=== PATIENT | male | born 1940 ===

== ENCOUNTER 2016-10-01 11:20 | Inpatient (IN) | payer MEDICARE ==
[2016-10-01] MEDS ORDERED: diltiaZEM 100 mg Vial ( ADD-VANTAGE ) IV ONE (12:13)
[2016-10-01 12:15] LABS: VENOUS BLOOD GAS BASE EXCESS 0.8 mmol/L (0.0-2.0); VENOUS BLOOD GAS PCO2 39 mmHg (40-60); VENOUS BLOOD PH 7.42 (7.32-7.43)
[2016-10-01] MEDS ORDERED: Sodium Chloride 0.9% 1,000 ML IV STA (12:18)
[2016-10-01 12:21] LABS: BASO % 0.9 % (0.0-2.0); EOS # 0.2 K/uL (0.0-0.7); EOS % 3.9 % (0.0-4.0); HEMATOCRIT 47.7 % (35.0-51.0); LYMPH # 1.8 K/uL (1.0-4.3); LYMPH % 40.6 % (20.0-40.0); MEAN CELL VOLUME 86.6 fl (80.0-94.0); MEAN CORPUSCULAR HEMOGLOBIN 28.1 pg (27.0-31.0); MEAN CORPUSCULAR HGB CONC 32.4 g/dL (33.0-37.0); MEAN PLATELET VOLUME 9.3 fl (7.2-11.7); MONO # 0.3 K/uL (0.0-0.8); MONO % 7.7 % (0.0-10.0); NEUT # 2.1 K/uL (1.8-7.0); NEUT % 46.9 % (50.0-75.0); NRBC % 0.2 % (0.0-0.0); RED CELL DISTRIBUTION WIDTH 13.8 % (11.5-14.5); WHITE BLOOD COUNT 4.4 K/uL (4.8-10.8)
[2016-10-01 12:32] LABS: ALB/GLOB RATIO 1.1 (1.0-2.1); ALCOHOL SERUM < 10 mg/dl (0-10); ALKALINE PHOSPHATASE 61 U/L (38-126); ALT/SGPT 28 U/L (21-72); AST/SGOT 28 U/L (17-59); BILIRUBIN,TOTAL 0.6 mg/dl (0.2-1.3); BLOOD UREA NITROGEN 17 mg/dl (9-20); CALCIUM 9.4 mg/dL (8.4-10.2); CARBON DIOXIDE 25 mmol/L (22-30); CHLORIDE 103 mmol/L (98-107); GFR AFRICAN-AMERICAN > 60; GLUCOSE,RANDOM 196 mg/dL (75-110); POTASSIUM 3.6 MMOL/L (3.6-5.0); SODIUM 138 mmol/l (132-148); TOTAL PROTEIN 7.7 G/DL (6.3-8.2)
--- NOTE | 2016-10-01 12:56 | RAD ---
HISTORY: syncope cough COMPARISON: Chest x-ray performed 09/06/09 TECHNIQUE: Chest, one view. FINDINGS: Examination limited by habitus and hypoinflation. LUNGS: Bibasilar atelectasis. Please note that chest x-ray has limited sensitivity for the detection of pulmonary masses. PLEURA: No significant pleural effusion identified. No definite pneumothorax . CARDIOVASCULAR: Severe enlargement of the mediastinum similar prior study may be related to ectatic or tortuous aneurysmal aorta. Correlate clinically. Heart size appears top normal. OSSEOUS STRUCTURES: Degenerative changes of the spine and shoulders. VISUALIZED UPPER ABDOMEN: Unremarkable. OTHER FINDINGS: None. IMPRESSION: Severe enlargement of the mediastinum similar prior study performed 09/06/09, possibly related to ectatic or tortuous aneurysmal aorta. Correlate clinically. Bibasilar atelectasis.
[2016-10-01 13:13] LABS: RBC URINE 2 /hpf (0-3); URINE BILIRUBIN NEGATIVE (NEGATIVE); URINE BLOOD NEGATIVE (NEGATIVE); URINE COLOR YELLOW (YELLOW); URINE GLUCOSE (UA) NEG (Normal); URINE KETONE NEGATIVE (NEGATIVE); URINE LEUKOCYTE ESTERASE NEG Leu/uL (Negative); URINE PROTEIN 30 mg/dL (NEGATIVE); URINE UROBILINOGEN 0.2-1.0 mg/dL (0.2-1.0); WBC URINE < 1 /hpf (0-5)
[2016-10-01 13:22] LABS: PARTIAL THROMBOPLASTIN TIME 31.1 Seconds (25.6-37.1)
--- NOTE | 2016-10-01 13:33 | CP.PCM.HP ---
History of Present Illness - History of Present Illness History of Present Illness: 76 yo male with history of HTN and HLD brought in by daughter because of passing for several seconds at home. Patient recovered spontaneously and was noted to be diaphoretic complaining of some abdominal discomfort and palpitation. Daughter claimed he was alert and oriented. Denied chest pain but admitted mild SOB. Patient admitted passing out a month ago while in [facility] and having palpitation almost everyday. Saw a local physician there who did blood works but no EKG and said everything was fine. Patient just came back to [place] a week ago. Present on Admission - Present on Admission Any Indicators Present on Admission: No History of DVT/PE: No History of Uncontrolled Diabetes: No Urinary Catheter: No Decubitus Ulcer Present: No Review of Systems - Review of Systems All systems: reviewed and no additional remarkable complaints except (aside from those mentioned above, 12 point system review were negative by me) Past Patient History - Tetanus Immunizations Tetanus Immunization: Unknown - Past Medical History & Family History Past Family History: Reviewed and not pertinent - Past Social History Smoking Status: Never Smoked Alcohol: Occasional Drugs: Denies Home Situation {Lives}: With Family - CARDIAC Hx Hypercholesterolemia: Yes Hx Hypertension: Yes - PULMONARY Hx Respiratory Disorders: No - NEUROLOGICAL Hx Neurological Disorder: No - HEENT Hx HEENT Problems: No - RENAL Hx Chronic Kidney Disease: No - ENDOCRINE/METABOLIC Hx Endocrine Disorders: No - HEMATOLOGICAL/ONCOLOGICAL Hx Blood Disorders: No - INTEGUMENTARY Hx Dermatological Problems: No - MUSCULOSKELETAL/RHEUMATOLOGICAL Hx Degenerative Joint Disease: Yes (both knees) - GASTROINTESTINAL Hx Gastrointestinal Disorders: No - GENITOURINARY/GYNECOLOGICAL Hx Genitourinary Disorders: No - PSYCHIATRIC Hx Psychophysiologic Disorder: No Hx Substance Use: No - SURGICAL HISTORY Hx Surgeries: Yes Hx Orthopedic Surgery: Yes (right TKR, 12 yrs ago; left TKR, 7 yrs ago) - ANESTHESIA Hx Anesthesia: Yes Hx Anesthesia Reactions: No Meds Allergies/Adverse Reactions: Allergies Allergy/AdvReac Type Severity Reaction Status Date / Time No Known Allergies Allergy Verified 10/01/16 11:35 Physical Exam - Constitutional Appears: No Acute Distress - Head Exam Head Exam: ATRAUMATIC - Eye Exam Eye Exam: Normal appearance - ENT Exam ENT Exam: Mucous Membranes Moist - Neck Exam Neck exam: Negative for: Meningismus - Respiratory Exam Respiratory Exam: absent: Rhonchi, Wheezes, Respiratory Distress - Cardiovascular Exam Cardiovascular Exam: REGULAR RHYTHM, +S1, +S2 - GI/Abdominal Exam GI & Abdominal Exam: Soft. absent: Tenderness - Rectal Exam Rectal Exam: Deferred - Extremities Exam Extremities exam: Negative for: pedal edema - Back Exam Back exam: NORMAL INSPECTION - Neurological Exam Neurological exam: Alert, Oriented x3 - Psychiatric Exam Psychiatric exam: Normal Affect - Skin Skin Exam: Dry, Intact Results - Vital Signs Recent Vital Signs: Last Vital Signs Temp Pulse 86 10/01/16 12:37 Resp 20 10/01/16 12:37 BP 116/80 10/01/16 12:37 Pulse Ox 96 10/01/16 12:37 - Labs Result Diagrams: 10/01/16 12:00 10/01/16 12:00 Labs: Laboratory Results - last 24 hr 10/01/16 10/01/16 10/01/16 12:00 12:00 12:00 WBC 4.4 L RBC 5.50 Hgb 15.5 Hct 47.7 MCV 86.6 MCH 28.1 MCHC 32.4 L RDW 13.8 Plt Count 253 MPV 9.3 Neut % (Auto) 46.9 L Lymph % (Auto) 40.6 H [place] % (Auto) 7.7 Eos % (Auto) 3.9 Baso % (Auto) 0.9 Neut # 2.1 Lymph # 1.8 [place] # 0.3 Eos # 0.2 Baso # 0.0 PT 11.8 INR 1.0 APTT 31.1 pO2 VBG pH VBG pCO2 VBG HCO3 VBG Total CO2 VBG O2 Sat (Calc) VBG Base Excess VBG Potassium Glucose Lactate FiO2 Sodium 138 Potassium 3.6 Chloride 103 Carbon Dioxide 25 Anion Gap 15 BUN 17 Creatinine 1.0 Est GFR ( Amer) > 60 Est GFR (Non-Af Amer) > 60 Random Glucose 196 H Calcium 9.4 Total Bilirubin 0.6 AST 28 ALT 28 Alkaline Phosphatase 61 Total Creatine Kinase 77 NT-Pro-B Natriuret Pep 30.1 Total Protein 7.7 Albumin 4.1 Globulin 3.6 Albumin/Globulin Ratio 1.1 Venous Blood Potassium Urine Color Urine Clarity Urine pH Ur Specific [place] Urine Protein Urine Glucose (UA) Urine Ketones Urine Blood Urine Nitrate Urine Bilirubin Urine Urobilinogen Ur Leukocyte Esterase Urine RBC (Auto) Urine Microscopic WBC Ur Squamous Epith Cells Alcohol, Quantitative < 10 10/01/16 10/01/16 12:10 13:00 WBC RBC Hgb Hct MCV MCH MCHC RDW Plt Count MPV Neut % (Auto) Lymph % (Auto) [place] % (Auto) Eos % (Auto) Baso % (Auto) Neut # Lymph # [place] # Eos # Baso # PT INR APTT pO2 43 VBG pH 7.42 VBG pCO2 39 L VBG HCO3 25.1 VBG Total CO2 26.5 VBG O2 Sat (Calc) 90.4 H VBG Base Excess 0.8 VBG Potassium 3.7 Glucose 220 H Lactate 2.5 H FiO2 21.0 Sodium 136.0 Potassium Chloride 103.0 Carbon Dioxide Anion Gap BUN Creatinine Est GFR ( Amer) Est GFR (Non-Af Amer) Random Glucose Calcium Total Bilirubin AST ALT Alkaline Phosphatase Total Creatine Kinase NT-Pro-B Natriuret Pep Total Protein Albumin Globulin Albumin/Globulin Ratio Venous Blood Potassium 3.7 Urine Color Yellow Urine Clarity Clear Urine pH 7.0 Ur Specific [place] 1.011 Urine Protein 30 Urine Glucose (UA) Neg Urine Ketones Negative Urine Blood Negative Urine Nitrate Negative Urine Bilirubin Negative Urine Urobilinogen 0.2-1.0 Ur Leukocyte Esterase Neg Urine RBC (Auto) 2 Urine Microscopic WBC < 1 Ur Squamous Epith Cells < 1 Alcohol, Quantitative Assessment & Plan (1) Syncope Status: Acute Comment: admit to telemetry. serial Troponin and EKG. cardiology consult with Dr Hernandez (2) Atrial flutter with rapid ventricular response Status: Acute Comment: Metoprolol 25mg PO q 12hrs. Lovenox 90mg SC q 12hrs (3) HTN (hypertension) Status: Acute Comment: continue Metoprolol. hold Lisinopril and HCTZ. monitor BP (4) DVT prophylaxis Status: Acute Comment: on therapeutic Lovenox
[2016-10-01] MEDS ORDERED: Iodixanol 320 MG/ML 100 ML BOTTLE IV ONE (14:14)
[2016-10-01] MEDS ORDERED: Sodium Chloride 0.9% 50 ML IV ONE (14:15)
--- NOTE | 2016-10-01 14:48 | ED PDOC ---
Syncope/Near Syncope/Dizziness Time Seen by Provider: 10/01/16 11:39 Chief Complaint (Nursing): Dizziness/Lightheaded Chief Complaint (Provider): "he passed out" History Per: Patient, Family, Relief Captain (noemi SANCHES) Onset/Duration Of Symptoms: Sudden Onset Current Symptoms Are (Timing): Intermittent Episodes Activity At Onset Of Symptoms: Had Just Stood up Associated Symptoms Preceding Syncopal Episode: Lightheadedness Seizure Or Post-ictal Symptoms: None Fall Associated With With Symptoms: No Severity: Moderate Additional Complaint(s): 76yo male presents w daughter who states patient had sudden unexplained loss of consciousness just prior to arrival, was standing at the time, became dizzy, pale and passed out. No shaking motion or incontinence, rapid regain of consciousness but amnestic to events. Denies head trauma, headache or focal weakness. Past Medical History Reviewed: Historical Data, Nursing Documentation, Vital Signs Vital Signs: Last Vital Signs Temp Pulse 86 10/01/16 12:37 Resp 20 10/01/16 12:37 BP 116/80 10/01/16 12:37 Pulse Ox 96 10/01/16 12:37 - Medical History PMH: HTN, Hypercholesterolemia Denies: Chronic Kidney Disease - Surgical History Surgical History: No Surg Hx - Family History Family History: States: Unknown Family Hx - Living Arrangements Living Arrangements: With Family - Social History Current smoker - smoking cessation education provided: No Alcohol: Occasional Drugs: Denies - Home Medications Home Medications: Ambulatory Orders Medication Instructions Recorded Aspirin [Ecotrin] 81 mg PO DAILY 10/01/16 Lisinopril [Zestril] 40 mg PO DAILY 10/01/16 Pantoprazole Sodium [Protonix] 40 mg PO DAILY 10/01/16 hydroCHLOROthiazide [Hydrodiuril] 25 mg PO DAILY 10/01/16 - Allergies Allergies/Adverse Reactions: Allergies Allergy/AdvReac Type Severity Reaction Status Date / Time No Known Allergies Allergy Verified 10/01/16 11:35 Review of Systems Constitutional: Negative for: Fever, Chills Cardiovascular: Positive for: Light Headedness. Negative for: Chest Pain, Palpitations, Orthopnea Respiratory: Negative for: Cough, Shortness of Breath, Sputum Gastrointestinal: Negative for: Nausea, Vomiting, Abdominal Pain Genitourinary Male: Negative for: Dysuria, Frequency Musculoskeletal: Negative for: Neck Pain Skin: Negative for: Rash, Lesions Neurological: Positive for: Dizziness. Negative for: Weakness, Seizures, Headache Psych: Negative for: Anxiety, Depression Physical Exam - Reviewed Nursing Documentation Reviewed: Yes Vital Signs Reviewed: Yes - Physical Exam Appears: Positive for: Well, Non-toxic, No Acute Distress Head Exam: Positive for: ATRAUMATIC, NORMAL INSPECTION, NORMOCEPHALIC Skin: Positive for: Normal Color, Warm, DRY Eye Exam: Positive for: EOMI, Normal appearance, PERRL ENT: Positive for: Normal ENT Inspection Neck: Positive for: Normal, Painless ROM Cardiovascular/Chest: Positive for: Regular Rate, Rhythm Respiratory: Positive for: CNT, Normal Breath Sounds Pulses-Radial (L): 2+ Pulses-Radial (R): 2+ Gastrointestinal/Abdominal: Positive for: Bowel Sounds, Soft. Negative for: Tenderness, Distended, Guarding Back: Positive for: Normal Inspection Extremity: Positive for: Normal ROM Neurologic/Psych: Positive for: Alert, prefitter doors II-XII (intact]), Oriented. Negative for: Motor/Sensory Deficits, Aphasia - Laboratory Results Result Diagrams: 10/01/16 12:00 10/01/16 12:00 - ECG O2 Sat by Pulse Oximetry: 96 Medical Decision Making Medical Decision Making: workup initiated for syncope. While on cardiac technologist noticed sudden onset tachyarrythmia, 12L at time revealed possible Aflutter w 2:1 block. Cardizem 10mg ordered which slowed pt then returned to sinus rhythm, but had 2 further instances of tachyarrythmia captured while on monitor. BP low at the time but spontaneous conversion sinus rhythm in 80s, BP improved. Labs reviewed. Mild Elev lactate, trop neg. CXR abnormal mediastinum c/w prior CXR, CTA ordered r/o dissection (unlikely without Chest pain), aortic aneurysm. Admit Dr Damon covering Dr Dominguez PMD.
[2016-10-01] MEDS: Pantoprazole 40 mg EC Tab PO SCH (14:56)
--- NOTE | 2016-10-01 15:25 | CT ---
PROCEDURE: CT Chest with contrast (Pulmonary Angiogram) HISTORY: syncope, abnormal CXR COMPARISON: Comparison made with prior chest radiograph 10/01/2016 at 1331 hours. TECHNIQUE: Axial computed tomography images were obtained of the chest in the pulmonary arterial phase of enhancement. Coronal and sagittal reformatted images were created and reviewed. Intravenous contrast dose: Radiation dose: Total exam DLP = mGy-cm. This CT exam was performed using one or more of the following dose reduction techniques: Automated exposure control, adjustment of the mA and/or kV according to patient size, and/or use of iterative reconstruction technique. FINDINGS: PULMONARY ARTERIES: The visualized main trunk, right and left main, lobar, segmental and proximal subsegmental branches of the pulmonary arteries are well opacified with no filling defects seen to suggest acute pulmonary embolus. The pulmonary trunk is dilated measuring approximately 3.755 cm ; findings suggest underlying pulmonary arterial hypertension. . AORTA: There is mild fusiform aneurysmal dilatation of the ascending thoracic aorta measuring approximately 4 cm. Descending thoracic aorta measures approximately 2.9 cm. LUNGS: Vague ground-glass hazy opacities seen in the lower lobes and to a lesser degree upper lung daigle representing passive atelectasis however some residual air trapping or sequela of small airways disease not excluded. No focal consolidation or effusion. No evidence of pneumothorax. PLEURAL SPACES: No evidence of effusion or pneumothorax. HEART: Heart appears upper limits of normal/borderline enlarged. No significant pericardial effusion. Very minimal LVH. . LYMPH NODES: No significant mediastinal or hilar adenopathy. BONES, CHEST WALL: Unremarkable. No fracture or destructive lesion OTHER FINDINGS: There is a tiny hiatal hernia. Small exophytic cyst upper pole right kidney. IMPRESSION: No evidence of acute central pulmonary embolus. Dilated pulmonary trunk; findings suggest underlying pulmonary hypertension. Fusiform aneurysmal dilatation of the ascending thoracic aorta. The vague ground-glass hazy opacities seen throughout the lower and to a lesser degree upper lung zones likely representing atelectasis however sequela of air trapping and/or small airways disease to be considered. The small exophytic cyst upper pole right kidney.
--- NOTE | 2016-10-01 16:01 | RAD ---
HISTORY: syncope, abnormal portable CXR COMPARISON: Chest x-ray performed 10/01/16 1230 hours, CTA chest performed 10/01/16 TECHNIQUE: Chest PA and lateral FINDINGS: LUNGS: No focal consolidation. Please note that chest x-ray has limited sensitivity for the detection of pulmonary masses. PLEURA: No significant pleural effusion identified. No definite pneumothorax . CARDIOVASCULAR: Severe enlargement of the mediastinum similar consistent with a markedly ectatic aorta. Heart size appears top normal. OSSEOUS STRUCTURES: Degenerative changes of the spine. Degenerative changes of the shoulders. Acromioclavicular arthropathy. VISUALIZED UPPER ABDOMEN: Unremarkable. OTHER FINDINGS: None. IMPRESSION: No focal consolidation, significant pleural effusion, or definite pneumothorax identified.
[2016-10-01] MEDS: Enoxaparin 100 mg Syringe SC SCH (21:15)
[2016-10-01] MEDS: Potassium Chloride 20 mEq/15 ml LIQ UD PO SCH (22:30)
[2016-10-02] MEDS: Potassium Chloride 20 mEq/15 ml LIQ UD PO SCH (04:40)
[2016-10-02 06:39] LABS: BASO % 0.6 % (0.0-2.0); BLOOD UREA NITROGEN 18 mg/dl (9-20); CALCIUM 9.2 mg/dL (8.4-10.2); CARBON DIOXIDE 28 mmol/L (22-30); CHLORIDE 101 mmol/L (98-107); CHOLESTEROL 231 mg/dL (0-199); EOS # 0.3 K/uL (0.0-0.7); EOS % 5.2 % (0.0-4.0); GFR AFRICAN-AMERICAN > 60; GLUCOSE,RANDOM 98 mg/dL (75-110); HEMATOCRIT 44.7 % (35.0-51.0); LYMPH % 38.9 % (20.0-40.0); MAGNESIUM 1.7 MG/DL (1.6-2.3); MEAN CELL VOLUME 87.7 fl (80.0-94.0); MEAN CORPUSCULAR HEMOGLOBIN 28.2 pg (27.0-31.0); MEAN CORPUSCULAR HGB CONC 32.2 g/dL (33.0-37.0); MEAN PLATELET VOLUME 9.9 fl (7.2-11.7); MONO # 0.5 K/uL (0.0-0.8); MONO % 9.5 % (0.0-10.0); NEUT # 2.4 K/uL (1.8-7.0); NEUT % 45.8 % (50.0-75.0); NRBC % 0.2 % (0.0-0.0); POTASSIUM 4.5 MMOL/L (3.6-5.0); SODIUM 137 mmol/l (132-148); WHITE BLOOD COUNT 5.2 K/uL (4.8-10.8)
[2016-10-02 07:09] LABS: THYROID STIMULATING HORMONE 0.99 mIU/ML (0.46-4.68)
--- NOTE | 2016-10-02 10:32 | CT ---
PROCEDURE: CT HEAD WITHOUT CONTRAST. HISTORY: TIA? COMPARISON: None available. TECHNIQUE: Axial computed tomography images were obtained through the head/brain without intravenous contrast. Radiation dose: Total exam DLP = 945.14 mGy-cm. This CT exam was performed using one or more of the following dose reduction techniques: Automated exposure control, adjustment of the mA and/or kV according to patient size, and/or use of iterative reconstruction technique. FINDINGS: HEMORRHAGE: No intracranial hemorrhage. BRAIN: There is a focal low-attenuation area in the right subcortical frontal white matter (series 2, image 20). There is no mass, mass effect or abnormal extra-axial fluid collection. VENTRICLES: There is mild age-related global parenchymal volume loss and proportionate enlargement of the ventricles and cortical sulci. CALVARIUM: The skull base and calvarium are normal. PARANASAL SINUSES: Predominantly clear. MASTOID AIR CELLS: Predominantly clear. OTHER FINDINGS: None. IMPRESSION: Focal abnormal density in the right subcortical frontal white matter could represent subacute/chronic infarction or focal chronic microangiopathic changes. If clinically indicated, an MRI of the brain without intravenous contrast may be performed for further evaluation. Mild age-related global parenchymal volume loss.
[2016-10-02] MEDS: Enoxaparin 100 mg Syringe SC SCH (10:33)
[2016-10-02] MEDS: Pantoprazole 40 mg EC Tab PO SCH (10:34)
--- NOTE | 2016-10-02 10:39 | CP.PCM.CON ---
History of Present Illness - History of Present Illness History of Present Illness: SYNCOPAL EPISODE X 1 YESTERDAY. THIS IS THE 3RD EPISODE IN 6 YEARS. LAST ONE WAS A MONTH AGO. SYMPTOMS OF DIZZINESS AND LH FOR ABOUT 1 MIN PRIOR TO SYNCOPE. DENIES ETOH OR DRUG USE. HE DID HAVE PALP PRIOR, DENIES CP, SOB, N/V /D/C, PAIN, F/C. Pt denies thyroid disease or known hx of cad. he walks 2 miles daily w/o issue. Review of Systems - Review of Systems All systems: reviewed and no additional remarkable complaints except - Constitutional Constitutional: absent: As Per HPI, Anorexia, Chills, Daytime Sleepiness, Excessive Sweating, Fatigue, Fever, Frequent Falls, Headache, Increased Appetite , Lethargy, Malaise, Night Sweats, Snoring, Sleep Apnea, Weight Gain, Weight Loss, Weakness, Other - EENT Eyes: absent: As Per HPI, Blind Spots, Blurred Vision, Change in Vision, Decreased Night Vision, Diplopia, Discharge, Dry Eye, Exophthalmos, Floaters, Irritation, Itchy Eyes, Loss of Peripheral Vision, Pain, Photophobia, Requires Corrective Lenses, Sees Flashes, Spots in Vision, Tunnel Vision, Other Visual Disturbances, Loss of Vision, Other Ears: absent: As Per HPI, Decreased Hearing, Ear Discharge, Ear Pain, Tinnitus, Abnormal Hearing, Disequilibrium, Dizziness, Other Nose/Mouth/Throat: absent: As Per HPI, Epistaxis, Nasal Congestion, Nasal Discharge, Nasal Obstruction, Nasal Trauma, Nose Pain, Post Nasal Drip, Sinus Pain, Sinus Pressure, Bleeding Gums, Change in Voice, Dental Pain, Dry Mouth, Dysphagia, Halitosis, Hoarsness, Lip Swelling, Mouth Lesions, Mouth Pain, Odynophagia, Sore Throat, Throat Swelling, Tongue Swelling, Facial Pain, Neck Pain, Neck Mass, Other - Cardiovascular Cardiovascular: As Per HPI, Lightheadedness, Palpitations, Rapid Heart Rate, Syncope. absent: Acrocyanosis, Chest Pain, Chest Pain at Rest, Chest Pain with Activity, Claudication, Diaphoresis, Dyspnea, Dyspnea on Exertion, Edema, Irregular Heart Rhythm, Pain Radiating to Arm/Neck/Jaw, Leg Edema, Leg Ulcers, Orthopnea, Paroxysmal Nocturnal Dyspnea, Pedal Edema, Radiating Pain, Slow Heart Rate, Other - Respiratory Respiratory: absent: As Per HPI, Cough, Dyspnea, Hemoptysis, Dyspnea on Exertion , Wheezing, Snoring, Stridor, Pain on Inspiration, Chest Congestion, Excessive Mucous Production, Change in Mucous Color, Pain with Coughing, Other - Gastrointestinal Gastrointestinal: absent: As Per HPI, Abdominal Pain, Belching, Bloating, Change in Bowel Habits, Change in Stool Character, Coffee Ground Emesis, Constipation, Cramping, Diarrhea, Dyspepsia, Dysphagia, Early Satiety, Excessive Flatus, Fecal Incontinence, Heartburn, Hematemesis, Hematochezia, Loose Stools, Melena, Nausea, Odynophagia, Temesmus, Vomiting, Other - Genitourinary Genitourinary: absent: As Per HPI, Change in Urinary Stream, Difficulty Urinating, Dysuria, Flank Pain, Hematuria, Pyuria, Nocturia, Urinary Incontinence, Urinary Frequency, Urinary Hesitance, Urinary Urgency, Voiding Freq/Small Amts, Freq UTI, Hx Renal/Bladder Calculi, Hx /Renal Surgery, Bladder Distension, Other - Musculoskeletal Musculoskeletal: absent: As Per HPI, Abnormal Gait, Arthralgias, Atrophy, Back Pain, Deformity, Joint Swelling, Limited Range of Motion, Loss of Height, Muscle Cramps, Muscle Weakness, Myalgias, Neck Pain, Numbness, Radiating Pain into Limb, Stiffness, Tingling, Other - Integumentary Integumentary: absent: As Per HPI, Acne, Alopecia, Bleeding Lesions, Change in Hair, Change in Nails, Change in Pigmentation, Changing Lesions, Dry Skin, Erythema, Furuncle, Hirsutism, Lesions, New Lesions, Non-Healing Lesions, Photosensitivity, Pruritus, Rash, Skin Pain, Skin Ulcer, Sores, Striae, Swelling , Unusual Bruising, Wounds, Jaundice, Other - Neurological Neurological: absent: As Per HPI, Abnormal Gait, Abnormal Hearing, Abnormal Movements, Abnormal Speech, Behavioral Changes, Burning Sensations, Confusion, Convulsions, Disequilibrium, Dizziness, Numbness, Focal Weakness, Frequent Falls , Headaches, Lack of Coordination, Loss of Vision, Memory Loss, Paresthesias, Radicular Pain, Restless Legs, Sensory Deficit, Syncope, Tingling, Tremor, Vertigo, Weakness, Other Visual Disturbances, Other - Psychiatric Psychiatric: absent: As Per HPI, Abnormal Sleep Pattern, Anhedonia, Anxiety, Auditory Hallucinations, Behavioral Changes, Change in Appetite, Change in Libido, Confusion, Depression, Difficulty Concentrating, Hallucinations, Homicidal Ideation, Hopelessness, Irritability, Memory Loss, Mood Swings, Panic Attacks, Paranoia, Suicidal Ideation, Visual Hallucinations, Tactile Hallucinations, Other - Endocrine Endocrine: absent: As Per HPI, Change in Body Appearance, Change in Libido, Cold Intolorance, Deepening of Voice, Excessive Sweating, Fatigue, Flushing, Heat Intolorance, Increase in Ring/Shoe/Hat Size, Palpitations, Polydipsia, Polyphagia, Polyuria, Other - Hematologic/Lymphatic Hematologic: absent: As Per HPI, Easy Bleeding, Easy Bruising, Lymphadenopathy, Other Past Patient History - Infectious Disease Hx of Infectious Diseases: None - Tetanus Immunizations Tetanus Immunization: Unknown - Past Medical History & Family History Past Family History: Reviewed and not pertinent - Past Social History Smoking Status: Former Smoker Alcohol: None Drugs: Denies Home Situation {Lives}: With Family Domestic Violence: Negative - CARDIAC Hx Cardiac Disorders: Yes Hx Hypercholesterolemia: Yes Hx Hypertension: Yes - PULMONARY Hx Respiratory Disorders: No - NEUROLOGICAL Hx Neurological Disorder: No Hx Syncope: Yes - HEENT Hx HEENT Problems: No - RENAL Hx Chronic Kidney Disease: No - ENDOCRINE/METABOLIC Hx Endocrine Disorders: No - HEMATOLOGICAL/ONCOLOGICAL Hx Blood Disorders: No - INTEGUMENTARY Hx Dermatological Problems: No - MUSCULOSKELETAL/RHEUMATOLOGICAL Hx Musculoskeletal Disorders: Yes Hx Degenerative Joint Disease: Yes (b/l knee surgery) Hx Falls: Yes - GASTROINTESTINAL Hx Gastrointestinal Disorders: No - GENITOURINARY/GYNECOLOGICAL Hx Genitourinary Disorders: No - PSYCHIATRIC Hx Psychophysiologic Disorder: No Hx Substance Use: No - SURGICAL HISTORY Hx Surgeries: Yes Hx Orthopedic Surgery: Yes (right TKR, 12 yrs ago; left TKR, 7 yrs ago) - ANESTHESIA Hx Anesthesia: Yes Hx Anesthesia Reactions: No Hx Malignant Hyperthermia: No Has any member of the family had a problem w/ anesthesia?: No Meds Home Medications: Home Medication List Medication Instructions Recorded Confirmed Type Aspirin [Ecotrin] 81 mg PO DAILY #30 10/02/16 Rx Atorvastatin [Lipitor] 20 mg PO HS #30 tab 10/02/16 Rx Metoprolol Tartrate [Lopressor] 25 mg PO Q12 #60 tab 10/02/16 Rx Pantoprazole [Protonix EC Tab] 40 mg PO DAILY #30 ect 10/02/16 Rx hydroCHLOROthiazide [Hydrodiuril] 25 mg PO DAILY #30 10/02/16 Rx Allergies/Adverse Reactions: Allergies Allergy/AdvReac Type Severity Reaction Status Date / Time No Known Allergies Allergy Verified 10/01/16 11:35 - Medications Medications: Current Medications Aspirin (Ecotrin) 81 mg PO DAILY [facility] Last Admin: 10/02/16 10:32 Dose: 81 mg Atorvastatin Calcium (Lipitor) 10 mg PO HS [facility] Last Admin: 10/01/16 22:37 Dose: 10 mg Docusate Sodium (Colace) 100 mg PO BID PRN PRN Reason: Constipation Enoxaparin Sodium (Lovenox) 100 mg SC Q12 [facility] PRN Reason: Protocol Last Admin: 10/02/16 10:33 Dose: 100 mg Metoprolol Tartrate (Lopressor) 25 mg PO Q12 [facility] Last Admin: 10/02/16 10:32 Dose: Not Given Pantoprazole Sodium (Protonix Ec Tab) 40 mg PO DAILY [facility] Last Admin: 10/02/16 10:34 Dose: 40 mg Physical Exam - Constitutional Appears: Well - Head Exam Head Exam: ATRAUMATIC - Eye Exam Eye Exam: EOMI, Normal appearance, PERRL Pupil Exam: NORMAL ACCOMODATION, PERRL - ENT Exam ENT Exam: Mucous Membranes Moist, Normal Exam - Neck Exam Neck exam: Positive for: Normal Inspection - Respiratory Exam Respiratory Exam: Clear to Auscultation Bilateral, NORMAL BREATHING PATTERN - Cardiovascular Exam Cardiovascular Exam: REGULAR RHYTHM, +S1, +S2, Systolic Murmur Additional comments: LLSB, non radiating. - GI/Abdominal Exam GI & Abdominal Exam: Normal Bowel Sounds, Soft. absent: Tenderness - Rectal Exam Rectal Exam: Deferred - Extremities Exam Extremities exam: Positive for: normal inspection - Back Exam Back exam: NORMAL INSPECTION - Neurological Exam Neurological exam: Alert, CN II-XII Intact, Normal Gait, Oriented x3, Reflexes Normal - Psychiatric Exam Psychiatric exam: Normal Affect, Normal Mood - Skin Skin Exam: Dry, Intact, Normal Color, Warm Results - Vital Signs Recent Vital Signs: Last Vital Signs Temp 98.4 F 10/02/16 08:00 Pulse 54 L 10/02/16 10:32 Resp 20 10/02/16 08:00 BP 101/62 10/02/16 10:32 Pulse Ox 100 10/02/16 08:00 - Labs Result Diagrams: 10/02/16 05:00 10/02/16 05:00 Labs: Laboratory Results - last 24 hr 10/01/16 10/02/16 10/02/16 21:08 05:00 05:00 WBC 5.2 RBC 5.10 Hgb 14.4 Hct 44.7 MCV 87.7 MCH 28.2 MCHC 32.2 L RDW 14.0 Plt Count 223 MPV 9.9 Neut % (Auto) 45.8 L Lymph % (Auto) 38.9 [place] % (Auto) 9.5 Eos % (Auto) 5.2 H Baso % (Auto) 0.6 Neut # 2.4 Lymph # 2.0 [place] # 0.5 Eos # 0.3 Baso # 0.0 Sodium 137 Potassium 4.5 Chloride 101 Carbon Dioxide 28 Anion Gap 13 BUN 18 Creatinine 1.1 Est GFR ( Amer) > 60 Est GFR (Non-Af Amer) > 60 Random Glucose 98 Calcium 9.2 Magnesium 1.7 Troponin I 0.0130 < 0.0120 Triglycerides 168 H Cholesterol 231 H LDL Cholesterol Direct 157 H HDL Cholesterol 42 TSH 3rd Generation 0.99 - EKG Data EKG Interpreted by: Myself EKG shows normal: Sinus rhythm Rate: Normal Assessment & Plan (1) Atrial flutter with rapid ventricular response Status: Acute (2) HTN (hypertension) Status: Acute (3) Syncope Status: Acute (4) Leg pain, left Status: Acute (5) Dyslipidemia Status: Acute - Assessment and Plan (Free Text) Plan: 1) ECHO TODAY TO EVAL LAE 2) TELE SHOWS NO FURTHER ARRYTHMIAS ON MEDS 3) LE DOPPLERS GIVEN RECENT TRIP AND LLE PAIN. CTA WAS NEGATIVE BUT WE NEED TO R/O DVT. 4) CONTINUE TELE. 5) PT WILL NOT NEED ANTICOAGULATION ON D/C HE HAS NOT HAD ANY LONG SUSTAINED RUNS AND NO EVIDENCE OF AFIB. PT IS SYMPTOMATIC WITH THE ARRYTHMIA. 6) WOULD CONTINUE ASA ON D/C AND BB'S 7) REPLEAT LYTES - MAG GIVEN TODAY, KCL YESTERDAY 8) INCREASED STATIN GIVEN LIPIDS. 10) 45 MIN TOTAL CARE TIME.
[2016-10-02] MEDS ORDERED: Magnesium Sulfate 2 gm/50 ml 2 GM/50 ML BAG IVPB ONE (10:41)
--- NOTE | 2016-10-02 11:01 | US ---
PROCEDURE: Duplex ultrasound of the carotid and vertebral arteries. HISTORY: TIA COMPARISON: None available. TECHNIQUE: Grayscale and duplex Doppler evaluation of the cervical carotid and vertebral arteries were performed. The common carotid, carotid bifurcations and cervical ICA and proximal ECA were evaluated. The vertebral arteries were evaluated for gross patency and direction. FINDINGS: RIGHT CAROTID ARTERIES: Common Carotid Artery: Normal. Maximal flow velocity of 75.7 cm/s. Carotid Bifurcation: Normal. Internal Carotid Artery:There are mild calcified atherosclerotic plaques in the proximal ICA. Maximal flow velocity of 46.0 cm/s. External Carotid Artery (proximal branches): Normal. Maximal flow velocity of 55.9 cm/s. ICA/CCA Ratio: 0.6 LEFT CAROTID ARTERIES: Common Carotid Artery: Normal. Maximal flow velocity of 179.8 cm/s. Carotid Bifurcation: Normal. Internal Carotid Artery:Normal. Maximal flow velocity of 61.4 cm/s. External Carotid Artery (proximal branches): Normal. Maximal flow velocity of 61.4 cm/s. ICA/CCA Ratio: 0.8 VERTEBRAL ARTERIES: Right Vertebral Artery: Patent. Antegrade flow. Left Vertebral Artery: Patent. Antegrade flow. OTHER FINDINGS: None. IMPRESSION: Mild calcified atherosclerotic plaques in the proximal right internal carotid artery. No evidence of hemodynamically significant stenosis.
--- NOTE | 2016-10-02 12:48 | US ---
PROCEDURE: Bilateral lower extremity venous duplex Doppler. HISTORY: DVT COMPARISON: None available. TECHNIQUE: Bilateral common femoral, superficial femoral, popliteal and posterior tibial veins were evaluated. Flow was assessed with color Doppler, compressibility, assessment of phasic flow and augmentation response. FINDINGS: COMMON FEMORAL VEIN: Right CFV: Unremarkable. Left CFV: Unremarkable. SUPERFICIAL FEMORAL VEIN: Right SFV: Unremarkable. Left SFV: Unremarkable. POPLITEAL VEIN: Right Popliteal: Unremarkable. Left Popliteal: Unremarkable. POSTERIOR TIBIAL VEIN: Right PTV: Unremarkable. Left PTV: Unremarkable. OTHER FINDINGS: None. IMPRESSION: No evidence of deep venous thrombosis.
--- NOTE | 2016-10-02 13:05 | CP.PCM.DIS ---
Provider - Provider Date of Admission: 10/01/16 13:30 Attending physician: Prince Damon MD Time Spent in preparation of Discharge (in minutes): 20 Diagnosis - Discharge Diagnosis (1) Atrial flutter with rapid ventricular response Status: Acute (2) Dyslipidemia Status: Acute (3) HTN (hypertension) Status: Acute (4) Leg pain, left Status: Acute (5) Syncope Status: Acute Hospital Course - Lab Results Lab Results: Most Recent Lab Values WBC 5.2 K/uL (4.8-10.8) 10/02/16 05:00 RBC 5.10 Mil/uL (4.40-5.90) 10/02/16 05:00 Hgb 14.4 g/dL (12.0-18.0) 10/02/16 05:00 Hct 44.7 % (35.0-51.0) 10/02/16 05:00 MCV 87.7 fl (80.0-94.0) 10/02/16 05:00 MCH 28.2 pg (27.0-31.0) 10/02/16 05:00 MCHC 32.2 g/dL (33.0-37.0) L 10/02/16 05:00 RDW 14.0 % (11.5-14.5) 10/02/16 05:00 Plt Count 223 K/uL (130-400) 10/02/16 05:00 MPV 9.9 fl (7.2-11.7) 10/02/16 05:00 Neut % (Auto) 45.8 % (50.0-75.0) L 10/02/16 05:00 Lymph % (Auto) 38.9 % (20.0-40.0) 10/02/16 05:00 [place] % (Auto) 9.5 % (0.0-10.0) 10/02/16 05:00 Eos % (Auto) 5.2 % (0.0-4.0) H 10/02/16 05:00 Baso % (Auto) 0.6 % (0.0-2.0) 10/02/16 05:00 Neut # 2.4 K/uL (1.8-7.0) 10/02/16 05:00 Lymph # 2.0 K/uL (1.0-4.3) 10/02/16 05:00 [place] # 0.5 K/uL (0.0-0.8) 10/02/16 05:00 Eos # 0.3 K/uL (0.0-0.7) 10/02/16 05:00 Baso # 0.0 K/uL (0.0-0.2) 10/02/16 05:00 PT 11.8 Seconds (9.8-13.1) 10/01/16 12:00 INR 1.0 (0.9-1.2) 10/01/16 12:00 APTT 31.1 Seconds (25.6-37.1) 10/01/16 12:00 D-Dimer, Quantitative 190 ng/mlDDU (0-230) 10/01/16 12:00 pO2 43 mm/Hg (30-55) 10/01/16 12:10 VBG pH 7.42 (7.32-7.43) 10/01/16 12:10 VBG pCO2 39 mmHg (40-60) L 10/01/16 12:10 VBG HCO3 25.1 mmol/L 10/01/16 12:10 VBG Total CO2 26.5 mmol/L (22-28) 10/01/16 12:10 VBG O2 Sat (Calc) 90.4 % (40-65) H 10/01/16 12:10 VBG Base Excess 0.8 mmol/L (0.0-2.0) 10/01/16 12:10 VBG Potassium 3.7 mmol/L (3.6-5.2) 10/01/16 12:10 Sodium 136.0 mmol/L (132-148) 10/01/16 12:10 Chloride 103.0 mmol/L (98-107) 10/01/16 12:10 Glucose 220 mg/dL (75-110) H 10/01/16 12:10 Lactate 2.5 mmol/L (0.7-2.1) H 10/01/16 12:10 FiO2 21.0 % 10/01/16 12:10 Sodium 137 mmol/l (132-148) 10/02/16 05:00 Potassium 4.5 MMOL/L (3.6-5.0) 10/02/16 05:00 Chloride 101 mmol/L (98-107) 10/02/16 05:00 Carbon Dioxide 28 mmol/L (22-30) 10/02/16 05:00 Anion Gap 13 (10-20) 10/02/16 05:00 BUN 18 mg/dl (9-20) 10/02/16 05:00 Creatinine 1.1 mg/dL (0.8-1.5) 10/02/16 05:00 Est GFR ( Amer) > 60 10/02/16 05:00 Est GFR (Non-Af Amer) > 60 10/02/16 05:00 Random Glucose 98 mg/dL (75-110) 10/02/16 05:00 Calcium 9.2 mg/dL (8.4-10.2) 10/02/16 05:00 Magnesium 1.7 MG/DL (1.6-2.3) 10/02/16 05:00 Total Bilirubin 0.6 mg/dl (0.2-1.3) 10/01/16 12:00 AST 28 U/L (17-59) 10/01/16 12:00 ALT 28 U/L (21-72) 10/01/16 12:00 Alkaline Phosphatase 61 U/L (38-126) 10/01/16 12:00 Total Creatine Kinase 77 U/L (55-170) 10/01/16 12:00 Troponin I < 0.0120 ng/mL (0.00-0.120) 10/02/16 05:00 NT-Pro-B Natriuret Pep 30.1 pg/ml (0-900) 10/01/16 12:00 Total Protein 7.7 G/DL (6.3-8.2) 10/01/16 12:00 Albumin 4.1 g/dL (3.5-5.0) 10/01/16 12:00 Globulin 3.6 gm/dL (2.2-3.9) 10/01/16 12:00 Albumin/Globulin Ratio 1.1 (1.0-2.1) 10/01/16 12:00 Triglycerides 168 mg/DL (0-149) H 10/02/16 05:00 Cholesterol 231 mg/dL (0-199) H 10/02/16 05:00 LDL Cholesterol Direct 157 mg/dL (0-129) H 10/02/16 05:00 HDL Cholesterol 42 MG/DL (30-70) 10/02/16 05:00 TSH 3rd Generation 0.99 mIU/ML (0.46-4.68) 10/02/16 05:00 Venous Blood Potassium 3.7 mmol/L (3.6-5.2) 10/01/16 12:10 Urine Color Yellow (YELLOW) 10/01/16 13:00 Urine Clarity Clear (Clear) 10/01/16 13:00 Urine pH 7.0 (5.0-8.0) 10/01/16 13:00 Ur Specific Oxly 1.011 (1.003-1.030) 10/01/16 13:00 Urine Protein 30 mg/dL (NEGATIVE) 10/01/16 13:00 Urine Glucose (UA) Neg mg/dL (Normal) 10/01/16 13:00 Urine Ketones Negative mg/dL (NEGATIVE) 10/01/16 13:00 Urine Blood Negative (NEGATIVE) 10/01/16 13:00 Urine Nitrate Negative (NEGATIVE) 10/01/16 13:00 Urine Bilirubin Negative (NEGATIVE) 10/01/16 13:00 Urine Urobilinogen 0.2-1.0 mg/dL (0.2-1.0) 10/01/16 13:00 Ur Leukocyte Esterase Neg [place]/uL (Negative) 10/01/16 13:00 Urine RBC (Auto) 2 /hpf (0-3) 10/01/16 13:00 Urine Microscopic WBC < 1 /hpf (0-5) 10/01/16 13:00 Ur Squamous Epith Cells < 1 /hpf (0-5) 10/01/16 13:00 Alcohol, Quantitative < 10 mg/dl (0-10) 10/01/16 12:00 - Hospital Course Hospital Course: 76 yo male with history of HTN and HLD brought in by daughter because of passing out for several seconds at home. Patient recovered spontaneously and was noted to be diaphoretic complaining of some abdominal discomfort and palpitation. Patient was found to have aflutter with RVR. Patient was placed on beta blockade. Patient was also evaluated for PE, CTA neg. CT head neg for bleed. Carotid vertebral duplex were negative. ECHO read can be followed up as an outpatient. Lower extremity Duplex also neg for DVT. Discussed with Cardiology, no AC as outpatient for aflutter. Cont BB. Stable for discharge home. Discharge Exam - Head Exam Head Exam: ATRAUMATIC, NORMAL INSPECTION, NORMOCEPHALIC - Eye Exam Eye Exam: EOMI, Normal appearance, PERRL Pupil Exam: NORMAL ACCOMODATION - ENT Exam ENT Exam: Mucous Membranes Moist, Normal Oropharynx - Neck Exam Neck exam: Full Rom, Normal Inspection - Respiratory Exam Respiratory Exam: Clear to PA & Lateral, NORMAL BREATHING PATTERN - Cardiovascular Exam Cardiovascular Exam: RRR, +S1, +S2 - GI/Abdominal Exam GI & Abdominal Exam: Normal Bowel Sounds, Soft. absent: Mass, Organomegaly, Tenderness - Extremities Exam Extremities exam: normal capillary refill, pedal pulses present - Back Exam Back exam: absent: CVA tenderness (L), CVA tenderness (R) - Neurological Exam Neurological exam: Alert, Oriented x3 - Psychiatric Exam Psychiatric exam: Normal Affect, Normal Mood - Skin Skin Exam: Dry, Warm Discharge Plan - Discharge Medications Prescriptions: Aspirin [Ecotrin] 81 mg PO DAILY #30 Atorvastatin [Lipitor] 20 mg PO HS #30 tab hydroCHLOROthiazide [Hydrodiuril] 25 mg PO DAILY #30 Metoprolol Tartrate [Lopressor] 25 mg PO Q12 #60 tab Pantoprazole [Protonix EC Tab] 40 mg PO DAILY #30 ect - Follow Up Plan Condition: FAIR Disposition: HOME/ ROUTINE Additional Instructions: stable for discharge home follow up with PCP AND Cardiology in one week resume heart healthy diet resume activity as tolerated return to ER if condition worsens
[2016-10-02 14:00] VITALS: BP 105/62; PULSE 62; RESP 18; TEMP 98.6; O2SAT 99
--- NOTE | 2016-10-02 16:11 | CARD ---
APPROVED REPORT EXAM: Two-dimensional and M-mode echocardiogram with Doppler and color Doppler. Other Information Quality : AverageRhythm : NSR INDICATION Syncope 2D DIMENSIONS IVSd1.34 (0.7-1.1cm)LVDd3.95 (3.9-5.9cm) LVOT Diameter3.43 (1.8-2.4cm)PWd0.72 (0.7-1.1cm) IVSs2.19 (0.8-1.2cm)LVDs2.91 (2.5-4.0cm) FS (%) 26.3 %PWs1.35 (0.8-1.2cm) LVEF (%)55.0 (>50%) M-Mode DIMENSIONS Left Atrium (MM)4.97 (2.5-4.0cm)IVSd1.13 (0.7-1.1cm) Aortic Root4.00 (2.2-3.7cm)LVDd5.22 (4.0-5.6cm) Aortic Cusp Exc.2.25 (1.5-2.0cm)PWd1.06 (0.7-1.1cm) IVSs2.19 cmFS (%) 47 % LVDs2.78 (2.0-3.8cm)PWs2.13 cm Mitral Valve MV E Cgnxxvru09.3cm/sMV DECEL [id number] A Ceadfodc52.7cm/s MV NDN40fzQ/A ratio0.9MVA (PHT)2.82cm2 TDI Lateral E' Peak V8.72cm/sMedial E' Peak V5.79cm/sE/Lateral E'8.3 E/Medial E'12.5 LEFT VENTRICLE The left ventricle is normal size. There is mild concentric left ventricular hypertrophy. The left ventricular function is normal. The left ventricular ejection fraction is within the normal range. There is normal LV segmental wall motion. Transmitral Doppler flow pattern is Grade I-abnormal relaxation pattern. RIGHT VENTRICLE The right ventricle is normal size. There is normal right ventricular wall thickness. The right ventricular systolic function is normal. ATRIA The left atrium is mildly dilated. The right atrium size is normal. AORTIC VALVE The aortic valve is not well visualized. There is trace aortic regurgitation. There is no aortic valvular stenosis. MITRAL VALVE The mitral valve is not well visualized. There is no mitral valve stenosis. There is no mitral valve regurgitation noted. TRICUSPID VALVE The tricuspid valve is normal in structure and function. There is no tricuspid valve regurgitation noted. PULMONIC VALVE The pulmonary valve is normal in structure and function. There is no pulmonic valvular regurgitation. GREAT VESSELS The aortic root is mildly enlarged. The IVC is normal in size and collapses >50% with inspiration. PERICARDIAL EFFUSION The pericardium appears normal. <Conclusion> The left ventricle is normal size. There is mild concentric left ventricular hypertrophy. The left ventricular function is normal. The left ventricular ejection fraction is within the normal range. There is normal LV segmental wall motion. Transmitral Doppler flow pattern is Grade I-abnormal relaxation pattern. The aortic root is mildly enlarged.
--- NOTE | 2016-10-03 08:31 | CARD ---
APPROVED REPORT EKG Measurement Heart [id number] <Conclusion> Sinus tachycardia Left axis deviation Inferior infarct, age undetermined Cannot rule out Anterior infarct, age undetermined Abnormal ECG
--- NOTE | 2016-10-03 08:32 | CARD ---
APPROVED REPORT EKG Measurement Heart [id number] <Conclusion> SVT , AV re-entry Nonspecific ST abnormality Abnormal ECG
--- NOTE | 2016-10-03 08:32 | CARD ---
APPROVED REPORT EKG Measurement Heart [id number] <Conclusion> Normal sinus rhythm Inferior infarct, age undetermined Abnormal ECG
== END 2016-10-02 14:50 | disposition home or self-care (01) | DRG 310 ==
LOC: H.ER 11:20 → H.ERHOLD 13:30 → H.TEL 16:24
DX: I48.92 Unspecified atrial flutter (principal); I10 Essential (primary) hypertension; E78.5 Hyperlipidemia, unspecified; E78.00 Pure hypercholesterolemia, unspecified; Z96.653 Presence of artificial knee joint, bilateral; M79.605 Pain in left leg; R55 Syncope and collapse